=== PATIENT | male | born 1945 | race Caucasian/White ===

== ENCOUNTER 2023-05-02 15:16 | Outpatient (CLI) | payer MEDICARE | END 2023-05-02 15:17 | disposition home or self-care (01) | LOC: CSHULT 15:16 | PROVIDERS: ATTEND Family Medicine | DX: N17.9 Acute kidney failure, unspecified (principal); N28.1 Cyst of kidney, acquired; N32.9 Bladder disorder, unspecified | CPT/HCPCS: 76770 ==

== ENCOUNTER 2023-05-10 07:27 | Outpatient (CLI) | payer MEDICARE ==
[2023-05-10] MEDS ORDERED: Iopamidol 300 61% 100 ML VIAL FS ONE (10:08)
== END 2023-05-10 07:28 | disposition home or self-care (01) ==
LOC: CSHCT 07:27
PROVIDERS: ATTEND Family Medicine
DX: N32.89 Other specified disorders of bladder (principal); Z96.641 Presence of right artificial hip joint; N40.0 Benign prostatic hyperplasia without lower urinary tract symptoms; N26.1 Atrophy of kidney (terminal); N28.1 Cyst of kidney, acquired; I51.7 Cardiomegaly; M85.9 Disorder of bone density and structure, unspecified
CPT/HCPCS: 74178; 82565

== ENCOUNTER 2023-11-17 13:02 | Outpatient (CLI) | payer MEDICARE | END 2023-11-17 13:03 | disposition home or self-care (01) | LOC: CSHCT 13:02 | PROVIDERS: ATTEND Family Medicine | DX: S09.93XA Unspecified injury of face, initial encounter (principal); W19.XXXA Unspecified fall, initial encounter; R07.81 Pleurodynia; R40.20 Unspecified coma | CPT/HCPCS: 70450 ==